=== PATIENT | male | born 1980 | race Caucasian/White ===

== ENCOUNTER 2018-12-11 11:10 | Emergency (ER) | payer BC ==
[~2018-12-11] VITALS: Wt 78.0 kg
[~2018-12-11 11:10] MED LIST: ACET500C5 PO; METH500T PO
[2018-12-11 11:21] VITALS: BP 124/67; PULSE 66; RESP 18
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
== END 2018-12-11 13:49 | disposition home or self-care (01) ==
LOC: FTE 11:10
DX: M54.6 Pain in thoracic spine (principal); F17.210 Nicotine dependence, cigarettes, uncomplicated; M54.2 Cervicalgia
CPT/HCPCS: 72040; 72072